=== PATIENT | female | born 1995 | race Caucasian/White ===

== ENCOUNTER 2018-10-30 12:09 | Emergency (ER) | payer MEDICAID ==
[~2018-10-30] VITALS: Ht 154.9 cm; Wt 77.0 kg
[~2018-10-30 12:09] MED LIST: FERR-43 PO; FOLI-43 PO; PREN-88 PO
[2018-10-30 12:17] VITALS: BP 139/78
== END 2018-10-30 17:20 | disposition left against medical advice (07) ==
LOC: ER 12:09
DX: Z53.21 Procedure and treatment not carried out due to patient leaving prior to being seen by health care provider (principal)

== ENCOUNTER 2018-11-01 07:57 | Emergency (ER) | payer MEDICAID ==
[~2018-11-01] VITALS: Ht 154.9 cm; Wt 77.5 kg
[2018-11-01 09:31] LABS: CLARITY URINE CLOUDY (CLEAR); COLOR URINE RED (YELLOW); KETONES URINE NEGATIVE (NEGATIVE); LEUKOCYTE ESTERASE URINE 1+ (NEGATIVE); NITRITE URINE NEGATIVE (NEGATIVE); OCCULT BLOOD URINE 3+ (NEGATIVE); PROTEIN URINE 1+ (NEGATIVE); SPECIFIC GRAVITY URINE 1.022 (1.005-1.030); UROBILINOGEN URINE 0.2 E.U./dL (0.2-1.0)
[2018-11-01 10:23] LABS: BASOPHILS % 0.2 % (0.0-2.0); EOSINOPHILS % 2.1 % (0.0-5.0); HEMOGLOBIN. 13.1 g/dL (12.0-16.0); LYMPHOCYTES % 17.1 % (20.0-50.0); MEAN CORPUSCULAR HEMOGLOBIN 31.1 pg (28.0-32.0); MEAN CORPUSCULAR VOLUME 92.3 fL (81.0-99.0); MEAN PLATELET VOLUME 7.8 fl (7.4-10.4); MONOCYTES % 5.3 % (2.0-8.0); NEUTROPHILS % 75.3 % (40.0-76.0); PLATELET 391 x1000/uL (130-400); RED BLOOD CELL COUNT 4.23 mill/uL (4.2-5.4); RED CELL DISTRIBUTION WIDTH 13.5 % (11.6-14.6)
[2018-11-01 10:29] LABS: CHLORIDE 108 mEq/L (98-107)
[2018-11-01 10:30] VITALS: BP 105/66
[2018-11-01 10:42] LABS: B-HCG QUANTITATIVE 381 mIU/mL (<3)
== END 2018-11-01 11:25 | disposition home or self-care (01) ==
LOC: ER 08:05
DX: O02.1 Missed abortion (principal); O08.83 Urinary tract infection following an ectopic and molar pregnancy; N39.0 Urinary tract infection, site not specified
CPT/HCPCS: 36415; 76801; 81025; 84702; 86850; 86900; 99284

== ENCOUNTER 2019-02-05 12:16 | Inpatient (IN) | payer MEDICAID ==
[~2019-02-05] VITALS: Ht 152.6 cm; Wt 77.6 kg
[2019-02-05 12:51] LABS: BASOPHILS % 0.3 % (0.0-2.0); EOSINOPHILS % 1.2 % (0.0-5.0); HEMOGLOBIN. 7.3 g/dL (12.0-16.0); LYMPHOCYTES % 19.3 % (20.0-50.0); MEAN CORPUSCULAR HEMOGLOBIN 32.4 pg (28.0-32.0); MEAN PLATELET VOLUME 7.2 fl (7.4-10.4); MONOCYTES % 6.4 % (2.0-8.0); NEUTROPHILS % 72.8 % (40.0-76.0); PLATELET 251 x1000/uL (130-400); RED BLOOD CELL COUNT 2.25 mill/uL (4.2-5.4); RED CELL DISTRIBUTION WIDTH 12.8 % (11.6-14.6)
[2019-02-05 12:58] LABS: CHLORIDE 111 mEq/L (98-107)
[2019-02-05 13:06] LABS: HEMATOCRIT. 20.9 % (36.0-48.0)
[2019-02-05 13:08] LABS: B-HCG QUANTITATIVE 81 mIU/mL (<3)
[2019-02-05] MEDS ORDERED: SODIUM CHLORIDE 0.9% 1,000 ML IV ONE ×2 (14:36→17:30)
[2019-02-05] MEDS ORDERED: FENTANYL CITRATE/PF 50MCG/ML 2ML VIAL ONE (16:22)
[2019-02-05] MEDS ORDERED: ROCURONIUM BROMIDE 10MG/ML VIAL 5ML IV ONE (16:22)
[2019-02-05] MEDS ORDERED: NEOSTIGMINE METHYLSULFATE 1MG/ML 10 ML VIAL ONE (16:22)
[2019-02-05] MEDS ORDERED: SODIUM CHLORIDE 0.9% 10ML VIAL ONE (16:23)
[2019-02-05] MEDS ORDERED: DEXAMETHASONE 4MG/ML 1ML VIAL ONE (16:23)
[2019-02-05] MEDS ORDERED: GLYCOPYRROLATE 0.2 MG/ML 2ML VIAL ONE (16:23)
[2019-02-05] MEDS ORDERED: ONDANSETRON HCL 4MG/2ML INJ ONE (16:23)
[2019-02-05] MEDS ORDERED: SUCCINYLCHOLINE CHLORIDE 200MG/10ML IV ONE (16:23)
[2019-02-05] MEDS ORDERED: LIDOCAINE HCL/PF 1% 10 MG/ML 5ML VIAL ONE (16:23)
[2019-02-05] MEDS ORDERED: MIDAZOLAM HCL 2 MG/2 ML VIAL ONE (16:23)
[2019-02-05] MEDS ORDERED: PROPOFOL 200MG/20ML VIAL IV ONE (16:23)
[2019-02-05] MEDS ORDERED: CEFAZOLIN SODIUM 1000MG/VIAL ONE (16:23)
[2019-02-05] MEDS ORDERED: METOCLOPRAMIDE HCL 10MG/2ML VIAL ONE (16:23)
[2019-02-05] MEDS ORDERED: MEPERIDINE HCL/PF 25MG/ML CPJ IV PRN (17:00)
[2019-02-05] MEDS ORDERED: ONDANSETRON HCL 4MG/2ML INJ IV PRN (17:00)
[2019-02-05] MEDS ORDERED: HYDROMORPHONE HCL/PF 2MG/ML CPJ IV PRN (17:00)
[2019-02-05 18:30] VITALS: BP 106/63
[2019-02-05 19:18] VITALS: BP 100/56
[2019-02-05 20:00] VITALS: BP 100/56
[2019-02-05 20:37] LABS: HEMOGLOBIN 7.9 g/dL (12.0-16.0)
[2019-02-05] MEDS ORDERED: POTASSIUM CHLORIDE 20MEQ TABLET SR PO NR (21:45)
[2019-02-05] MEDS: ACETAMINOPHEN 325MG TABLET PO PRN (23:01)
[2019-02-05 23:13] VITALS: BP 100/50
[2019-02-05 23:29] VITALS: BP 95/46
[2019-02-06] VITALS (8 sets, daily range): BP systolic 89–107; BP diastolic 39–65
[2019-02-06] MEDS: ACETAMINOPHEN 325MG TABLET PO PRN ×2 (09:11→21:07)
[2019-02-06 10:15] LABS: HEMATOCRIT 24.3 % (36.0-48.0); HEMOGLOBIN 8.5 g/dL (12.0-16.0)
[2019-02-06] MEDS ORDERED: POTASSIUM CHLORIDE 20MEQ TABLET SR PO NR (13:15)
[2019-02-06 23:28] LABS: BASOPHILS % 0.4 % (0.0-2.0); EOSINOPHILS % 3.7 % (0.0-5.0); HEMATOCRIT. 22.2 % (36.0-48.0); HEMOGLOBIN. 7.8 g/dL (12.0-16.0); LYMPHOCYTES % 29.9 % (20.0-50.0); MEAN CORPUSCULAR HEMOGLOBIN 32.6 pg (28.0-32.0); MEAN CORPUSCULAR VOLUME 92.5 fL (81.0-99.0); MEAN PLATELET VOLUME 7.7 fl (7.4-10.4); MONOCYTES % 7.8 % (2.0-8.0); NEUTROPHILS % 58.2 % (40.0-76.0); PLATELET 215 x1000/uL (130-400); RED CELL DISTRIBUTION WIDTH 13.5 % (11.6-14.6)
[2019-02-06 23:32] LABS: CHLORIDE 114 mEq/L (98-107)
[2019-02-07] VITALS: BP 87/39
[2019-02-07 00:10] VITALS: BP 91/48
[2019-02-07 04:00] VITALS: BP 95/57
[2019-02-07 08:00] VITALS: BP 101/62
[2019-02-07 08:22] VITALS: BP 110/74
== END 2019-02-07 10:00 | disposition home or self-care (01) | DRG 544 ==
LOC: ER 12:16 → SUPCPDRO 15:16 → ENRESERV 15:29 → ER 16:20 → CANBEDREQ 18:24 → 6EST 18:34
PROVIDERS: ADMIT Obstetrics & Gynecology; ATTEND Obstetrics & Gynecology
PROC: 10D17ZZ Extraction of Products of Conception, Retained, Via Natural or Artificial Opening (ICD-10-PCS; principal; 2019-02-05)
PROC: 30233N1 Transfusion of Nonautologous Red Blood Cells into Peripheral Vein, Percutaneous Approach (ICD-10-PCS; 2019-02-05)
DX: O03.4 Incomplete spontaneous abortion without complication (principal); D64.9 Anemia, unspecified; O99.019 Anemia complicating pregnancy, unspecified trimester
CPT/HCPCS: 36415; 76801; 80048; 84702; 85014; 85018; 86850; 86900; 86920; 88305; 96360; 99285; J0330; J0690; J1100; J2250; J2405; J2704; J2710; J2765; J3010; J3490; J7030; J7040; P9016

== ENCOUNTER 2019-04-15 17:39 | Emergency (ER) | payer MEDICAID ==
[~2019-04-15] VITALS: Ht 154.9 cm; Wt 73.0 kg
[2019-04-15] MEDS ORDERED: ASPIRIN 81MG TABLET PO ONE (20:30)
[2019-04-15] MEDS ORDERED: ACETAMINOPHEN 500MG TABLET PO ONE (20:30)
[2019-04-15 23:18] LABS: BASOPHILS % 0.5 % (0.0-2.0); EOSINOPHILS % 2.5 % (0.0-5.0); HEMATOCRIT. 31.9 % (36.0-48.0); HEMOGLOBIN. 10.9 g/dL (12.0-16.0); LYMPHOCYTES % 28.4 % (20.0-50.0); MEAN CORPUSCULAR HEMOGLOBIN 29.8 pg (28.0-32.0); MEAN CORPUSCULAR VOLUME 87.1 fL (81.0-99.0); MEAN PLATELET VOLUME 7.5 fl (7.4-10.4); MONOCYTES % 11.6 % (2.0-8.0); PLATELET 373 x1000/uL (130-400); RED BLOOD CELL COUNT 3.66 mill/uL (4.2-5.4); RED CELL DISTRIBUTION WIDTH 12.9 % (11.6-14.6)
[2019-04-15 23:24] LABS: CHLORIDE 109 mEq/L (98-107)
[2019-04-16 00:30] VITALS: BP 115/80
== END 2019-04-16 00:31 | disposition home or self-care (01) ==
LOC: ER 18:12
DX: R07.89 Other chest pain (principal); R06.02 Shortness of breath; R60.0 Localized edema; R20.0 Anesthesia of skin; R42 Dizziness and giddiness; F41.9 Anxiety disorder, unspecified
CPT/HCPCS: 36415; 71045; 80053; 81025; 84484; 85025; 85379; 93005; 99284; Z7610

== ENCOUNTER 2019-10-08 14:18 | Emergency (ER) | payer MEDICAID ==
[~2019-10-08] VITALS: Ht 154.9 cm; Wt 77.0 kg
[2019-10-08 14:33] VITALS: BP 127/71
[2019-10-08] MEDS ORDERED: NITROFURANTOIN 100MG M/M CAPSULE PO ONE (15:30)
[2019-10-08] MEDS ORDERED: PHENAZOPYRIDINE HCL 100MG TABLET PO ONE (15:30)
[2019-10-08 15:37] LABS: CLARITY URINE TURBID (CLEAR); COLOR URINE YELLOW (YELLOW); KETONES URINE NEGATIVE (NEGATIVE); LEUKOCYTE ESTERASE URINE 3+ (NEGATIVE); NITRITE URINE NEGATIVE (NEGATIVE); OCCULT BLOOD URINE 3+ (NEGATIVE); PROTEIN URINE 2+ (NEGATIVE); SPECIFIC GRAVITY URINE 1.019 (1.005-1.030); UROBILINOGEN URINE 0.2 E.U./dL (0.2-1.0)
== END 2019-10-08 16:40 | disposition home or self-care (01) ==
LOC: ER 14:25
DX: N39.0 Urinary tract infection, site not specified (principal); R10.2 Pelvic and perineal pain
CPT/HCPCS: 81003; 81025; 87077; 87186; 99283

== ENCOUNTER 2020-07-25 18:21 | Observation (INO) | payer MEDICAID ==
[~2020-07-25] VITALS: Ht 154.9 cm; Wt 86.2 kg
[2020-07-25] MEDS ORDERED: ACETAMINOPHEN 500MG TABLET PO ONE (19:15)
[2020-07-25] MEDS ORDERED: GUAIFENESIN-DM 200MG-20MG/10ML UDC PO PRN (19:45)
[2020-07-25 21:04] LABS: CLARITY URINE CLOUDY (CLEAR); COLOR URINE DARK YELLOW (YELLOW); KETONES URINE NEGATIVE (NEGATIVE); LEUKOCYTE ESTERASE URINE 3+ (NEGATIVE); NITRITE URINE NEGATIVE (NEGATIVE); OCCULT BLOOD URINE NEGATIVE (NEGATIVE); PH URINE 6.5 (4.5-8.0); PROTEIN URINE 1+ (NEGATIVE); SPECIFIC GRAVITY URINE 1.022 (1.005-1.030)
[2020-07-25] MEDS: LACTATED RINGERS 1,000 ML IV SCH ×2 (21:04→23:39)
[2020-07-25 21:06] LABS: BASOPHILS % 0.7 % (0.0-2.0); EOSINOPHILS % 0.5 % (0.0-5.0); HEMATOCRIT. 30.1 % (36.0-48.0); HEMOGLOBIN. 9.8 g/dL (12.0-16.0); LYMPHOCYTES % 18.4 % (20.0-50.0); MEAN CORPUSCULAR HEMOGLOBIN 25.7 pg (28.0-32.0); MEAN CORPUSCULAR VOLUME 79.2 fL (81.0-99.0); MEAN PLATELET VOLUME 8.8 fl (7.4-10.4); MONOCYTES % 9.1 % (2.0-8.0); NEUTROPHILS % 71.3 % (40.0-76.0); PLATELET 273 x1000/uL (130-400); RED BLOOD CELL COUNT 3.81 mill/uL (4.2-5.4); RED CELL DISTRIBUTION WIDTH 14.4 % (11.6-14.6)
[2020-07-25 21:08] LABS: CHLORIDE 108 mEq/L (98-107)
[2020-07-25] MEDS ORDERED: CEFTRIAXONE 2 G in DEXTROSE 5% WATER 50 ML IV NR (22:00)
[2020-07-25] MEDS ORDERED: CEFTRIAXONE 2 G PREMIX 50 ML IV SCH (22:00)
== END 2020-07-25 23:49 | disposition home or self-care (01) ==
LOC: L&D 18:21
PROVIDERS: ADMIT Obstetrics & Gynecology; ATTEND Obstetrics & Gynecology
DX: O99.891 Other specified diseases and conditions complicating pregnancy (principal); Z20.828 Contact with and (suspected) exposure to other viral communicable diseases; R50.9 Fever, unspecified; R05 Cough; Z3A.36 36 weeks gestation of pregnancy
CPT/HCPCS: 36415; 59025; 76815; 76818; 80053; 81003; 85025; 87086; 87426; 96361; 96365; G0378; J0696; J7060; J7070; J7120; 96360; 99281

== ENCOUNTER 2020-07-26 00:09 | Emergency (ER) | payer MEDICAID ==
[~2020-07-26] VITALS: Ht 165.1 cm; Wt 64.0 kg
[2020-07-26 01:13] VITALS: BP 121/69
== END 2020-07-26 01:18 | disposition home or self-care (01) ==
LOC: ER 00:09
DX: O98.513 Other viral diseases complicating pregnancy, third trimester (principal); U07.1 COVID-19; O26.893 Other specified pregnancy related conditions, third trimester; R50.9 Fever, unspecified; Z79.899 Other long term (current) drug therapy; Z3A.36 36 weeks gestation of pregnancy
CPT/HCPCS: 99281; 99282

== ENCOUNTER 2020-07-31 16:10 | Emergency (ER) | payer MEDICAID ==
[~2020-07-31] VITALS: Ht 162.6 cm; Wt 80.0 kg
[2020-07-31] MEDS ORDERED: ALBUTEROL 6.7GM HFA INHALER ORI ONE (19:00)
[2020-07-31 19:04] LABS: BASOPHILS % 0.4 % (0.0-2.0); HEMOGLOBIN. 10.5 g/dL (12.0-16.0); LYMPHOCYTES % 19.6 % (20.0-50.0); MEAN CORPUSCULAR HEMOGLOBIN 25.5 pg (28.0-32.0); MEAN CORPUSCULAR VOLUME 77.8 fL (81.0-99.0); MEAN PLATELET VOLUME 8.9 fl (7.4-10.4); MONOCYTES % 5.1 % (2.0-8.0); NEUTROPHILS % 74.9 % (40.0-76.0); PLATELET 237 x1000/uL (130-400); RED BLOOD CELL COUNT 4.12 mill/uL (4.2-5.4)
[2020-07-31 19:11] LABS: CHLORIDE 111 mEq/L (98-107)
[2020-07-31 20:43] LABS: CLARITY URINE CLOUDY (CLEAR); COLOR URINE DARK YELLOW (YELLOW); KETONES URINE NEGATIVE (NEGATIVE); LEUKOCYTE ESTERASE URINE 2+ (NEGATIVE); NITRITE URINE NEGATIVE (NEGATIVE); OCCULT BLOOD URINE NEGATIVE (NEGATIVE); PROTEIN URINE TRACE (NEGATIVE); SPECIFIC GRAVITY URINE 1.009 (1.005-1.030)
[2020-07-31 21:15] VITALS: BP 120/79
== END 2020-07-31 21:35 | disposition home or self-care (01) ==
LOC: ER 16:10
DX: O26.893 Other specified pregnancy related conditions, third trimester (principal); O99.513 Diseases of the respiratory system complicating pregnancy, third trimester; Z3A.37 37 weeks gestation of pregnancy; Z79.899 Other long term (current) drug therapy
CPT/HCPCS: 36415; 80053; 81003; 83880; 84484; 85025; 93005; 99284

== ENCOUNTER 2021-08-22 15:35 | Emergency (ER) | payer MEDICAID ==
[~2021-08-22] VITALS: Ht 154.9 cm; Wt 77.0 kg
[2021-08-22] MEDS ORDERED: IBUP-2028 MT (19:00)
[2021-08-22] MEDS ORDERED: TOPUD PO (19:00)
[2021-08-22] MEDS ORDERED: FAMO40TA70 MT (19:00)
[2021-08-22 19:12] VITALS: BP 116/76
== END 2021-08-22 19:13 | disposition home or self-care (01) ==
LOC: ER 15:35
DX: Z53.21 Procedure and treatment not carried out due to patient leaving prior to being seen by health care provider (principal)

== ENCOUNTER 2022-06-07 17:47 | Emergency (ER) | payer MEDICAID ==
[~2022-06-07] VITALS: Ht 154.9 cm; Wt 68.0 kg
[~2022-06-07 17:47] MED LIST changes: +FAMO40TA70 MT; -FERR-43 PO; -FOLI-43 PO; +IBUP-2028 MT; -PREN-88 PO; +TOPUD PO
[2022-06-07] MEDS ORDERED: CARB100C9 MT (21:27)
[2022-06-07] MEDS ORDERED: CARBAMAZEPINE 100MG TABLET CHEW PO ONE (21:30)
[2022-06-07 21:38] VITALS: BP 132/76
== END 2022-06-07 21:38 | disposition home or self-care (01) ==
LOC: ER 18:18
DX: G50.0 Trigeminal neuralgia (principal); R03.0 Elevated blood-pressure reading, without diagnosis of hypertension
CPT/HCPCS: 81025; 99283

== ENCOUNTER 2022-12-13 12:44 | Emergency (ER) | payer MEDICAID ==
[~2022-12-13] VITALS: Ht 167.6 cm; Wt 80.0 kg
[~2022-12-13 12:44] MED LIST changes: +CARB100C9 MT
[2022-12-13 14:43] VITALS: BP 133/97
[2022-12-13] MEDS ORDERED: ONDANSETRON HCL 4MG/2ML INJ IM STA (14:43)
[2022-12-13] MEDS ORDERED: KETOROLAC 60MG/2ML VIAL IM STA (14:43)
[2022-12-13] MEDS ORDERED: D-ME473S50 PO (17:28)
[2022-12-13] MEDS ORDERED: IBUP-2029 PO (17:28)
== END 2022-12-13 17:49 | disposition home or self-care (01) ==
LOC: ER 12:52
DX: J02.9 Acute pharyngitis, unspecified (principal); Z20.822 Contact with and (suspected) exposure to COVID-19
CPT/HCPCS: 87426; 87430; 96372; 99284; C9803; J1885; J2405

== ENCOUNTER 2023-03-23 14:16 | Emergency (ER) | payer MEDICAID ==
[~2023-03-23] VITALS: Ht 154.9 cm; Wt 77.0 kg
[~2023-03-23 14:16] MED LIST changes: +D-ME473S50 PO; +IBUP-2029 PO
[2023-03-23 14:19] VITALS: O2SAT 98
[2023-03-23] MEDS ORDERED: DEXAMETHASONE 0.5MG/5ML ORAL SYR PO ONE (16:00)
[2023-03-23] MEDS ORDERED: KETOROLAC 30MG/ML VIAL IM ONE (16:00)
[2023-03-23] MEDS ORDERED: ONDANSETRON 4MG ODT PO ONE (16:30)
[2023-03-23 16:32] VITALS: BP 126/87
[2023-03-23] MEDS ORDERED: DEXAMETHASONE 4MG TABLET PO NR (17:00)
[2023-03-23] MEDS ORDERED: NAPR-681 MT (17:24)
[2023-03-23] MEDS ORDERED: AMOX1TAB16 MT (17:24)
[2023-03-23] MEDS ORDERED: ONDA4TAB11 PO (17:24)
[2023-03-23 18:12] VITALS: PULSE 100; RESP 16; TEMP 98.2
== END 2023-03-23 18:18 | disposition home or self-care (01) ==
LOC: ER 14:53
DX: H66.93 Otitis media, unspecified, bilateral (principal); J02.9 Acute pharyngitis, unspecified; Z20.822 Contact with and (suspected) exposure to COVID-19
CPT/HCPCS: 99283; 87426; 81025; 87430; 87070; 96372; J8540; Q0162; J1885; C9803

== ENCOUNTER 2023-09-30 11:18 | Emergency (ER) | payer MEDICAID ==
[~2023-09-30] VITALS: Ht 165.1 cm; Wt 82.0 kg
[~2023-09-30 11:18] MED LIST changes: +AMOX1TAB16 MT; +NAPR-681 MT; +ONDA4TAB11 PO
[2023-09-30 11:21] VITALS: O2SAT 99
[2023-09-30] MEDS: ACETAMINOPHEN 325MG TABLET PO ONE (12:33)
[2023-09-30 14:48] VITALS: BP 120/80; PULSE 84; RESP 17; TEMP 97.8
== END 2023-09-30 15:00 | disposition home or self-care (01) ==
LOC: ER 12:52
DX: J06.9 Acute upper respiratory infection, unspecified (principal)
CPT/HCPCS: 81025; 87070; 87430; 99283